=== PATIENT | female | born 1985 | race Two or more races ===

== ENCOUNTER 2025-03-10 01:12 | Emergency (ER) | payer BC, MEDICARE, MEDICAID ==
[~2025-03-10] VITALS: Ht 162.6 cm; Wt 74.0 kg
[~2025-03-10 01:12] MED LIST: HYDR-4833 PO; PRE1T PO
[2025-03-10 01:44] LABS: Basophils # (auto) 0 10 ^3/uL (0-0.2); Basophils % (auto) 0.6 % (0.0-2.0); Eosinophils # (auto) 0.1 10 ^3/uL (0-0.8); Hematocrit 31.7 % (36.0-46.0); Hemoglobin 10.4 g/dL (12.2-16.2); Lymphocytes # (auto) 2.3 10 ^3/uL (0.4-5.4); Lymphocytes % (auto) 33.8 % (10.0-50.0); Mean Corpuscular Hemoglobin 28.8 pg (28.0-32.0); Mean Corpuscular Hgb Conc. 32.8 g/dL (32.0-36.0); Mean Corpuscular Volume 87.7 fL (80.0-100.0); Monocytes # (auto) 0.5 10 ^3/uL (0-1.3); Monocytes % (auto) 7.1 % (0.0-12.0); Neutrophils % (auto) 57.5 % (37.0-80.0); Nucleated Red Blood Cells % 0.1 %; Platelet Count (auto) 268 10^3/uL (140-450); Red Blood Cells 3.62 10^6/uL (4.0-5.20); Red Cell Distribution Width 14.8 % (11.8-14.3); White Blood Cell 6.9 10^3/uL (4.4-10.8)
--- NOTE | 2025-03-10 01:50 | ED.PDOC ---
History of Present Illness HPI Comments 39 y/o F presents with left chest, neck, and arm pain, shortness of breath, generalized tremors, and nausea. Patient endorses on neck and arm pain being ongoing for 1 week, with remaining symptoms ensuing, last night. Patient reports on, recently, returning from a trip from [place], [place] and consuming al cohol. Only significant cardiac history of cardiomegaly during her . Denies any palpitations, dizziness, lightheadedness, vomiting, or further associated symptoms. Chief Complaint: Chest Pain Time Seen by MD: 01:30 Primary Care Provider: MIGUEL A Reviewed Notes: Nurses Notes, Medications, Allergies Allergies: Coded Allergies: Sulfa Antibiotics (Verified Allergy, Severe, 03/10/25) Home Meds Active Scripts Potassium Chloride (Potassium Chloride ER) 10 Meq Tab, 10 MEQ PO BID for 10 Days, #20 TAB Prov:SUMAYA GRAHAM MD 03/10/25 Reported Medications Prednisone (PREDNISONE) 1 Mg Tb, 4 TAB PO DAILY, #120 TAB 3 Refills 05/29/15 Hydrocodone-Acetaminophen ([place] 5/325MG) 1 Tab Tb, 1 TAB PO Q6HP PRN for M ODERATE PAIN, #60 TAB 05/29/15 Information Source: Patient Mode of Arrival: Ambulatory Severity: Moderate Timing: Hours Duration: Since onset Prehospital treatment: None Past Medical History PAST MEDICAL HISTORY: Asthma Surgical History: , Tubal Ligation [employer]AFF [employer] History: No Pertinent [employer]AFF [employer] History Family History Family History: No family hx of Cancer, No family hx of Heart elian Social History Smoker: Non-Smoker Alcohol: Occasionally Drugs: Denies Drug Use Lives In: Home All Other Systems: Reviewed and Negative (as per HPI) Physical Exam General Appearance: Mild Distress, Normal HEENT: Normal ENT Inspection, Pharynx Normal, TMs Normal Neck: Full Range of Motion, Non-Tender, Normal, Normal Inspection Respiratory: Chest Non-Tender, Lungs Clear, No Accessory Muscle Use, No Respiratory Distress, Normal Breath Sounds Cardiovascular: No Edema, No JVD, No Murmur, No Gallop, Normal Peripheral Pulses, Regular Rate/Rhythm Breast Exam: Deferred Gastrointestinal: No Organomegaly, Non Tender, No Pulsatile Mass, Normal Bowel Sounds, Soft Genitalia: Deferred Pelvic: Deferred Rectal: Deferred Extremities: No calf tenderness, Normal capillary refill, Normal inspection, Normal range of motion, Non-tender, No pedal edema Musculoskeletal : Apperance: Normal Neurologic: Alert, supervisor forming and tempering II-XII nml as Tested, No Motor Deficits, Normal Affect, Normal Mood, No Sensory Deficits Cerebellar Function: Normal Reflexes: Normal Skin: Dry, Normal Color, Warm Lymphatic: No Adenopathy Was a procedure done? Was a procedure done?: No EKG EKG : Pulse Rate (adult): 100 [place]: Normal Cardiac Rhythm: ST Block: None Hypertrophy: None Differential Dx Considerations may include: PA, PE, ACS, URI, PNA, anxiety, gastritis, among others X-Ray, Labs, Meds, VS Vital Signs Date Time Temp Pulse Resp B/P (MAP) Pulse Ox O2 Delivery O2 Flow Rate FiO2 03/10/25 04:48 98.3 80 16 162/92 (115) 99 98.3 03/10/25 03:00 98 Room Air* 0 21 03/10/25 03:00 98.3 87 19 169/103 (125) 99 98.3 03/10/25 02:23 86 03/10/25 01:50 100 03/10/25 01:21 100 03/10/25 01:12 99.0 85 16 152/99 (116) 97 99.0 Lab Test 03/10/25 04:37 03/10/25 02:16 03/10/25 01:45 03/10/25 01:18 Range/Units Troponin I High Sensitivity Pending < 3 L < 3 L </=34 ng/L Urine Color Colorless Yellow Urine Clarity Clear Clear Urine pH 6.5 5.0-9.0 Urine Specific [place] 1.006 1.001-1.035 Urine Protein Negative Negative Urine Ketones Negative Negative Urine Blood Negative Negative /uL Urine Nitrite Negative Negative Urine Bilirubin Negative Negative Urine Urobilinogen Normal Negative mg/dL Urine Leukocyte Esterase Negative Negative /uL Urine RBC 1 0 - 4 /hpf Urine Microscopic WBC < 1 0-5 /HPF Urine Squamous Epithelial Cells Few <5 /hpf Urine Bacteria None seen None Seen /hpf Urine Glucose Normal Normal mg/dL White Blood Count 6.9 4.4-10.8 10^3/uL Red Blood Count 3.62 L 4.0-5.20 10^6/uL Hemoglobin 10.4 L 12.2-16.2 g/dL Hematocrit 31.7 L 36.0-46.0 % Mean Corpuscular Volume 87.7 80.0-100.0 fL Mean Corpuscular Hemoglobin 28.8 28.0-32.0 pg Mean Corpuscular Hemoglobin Concent 32.8 32.0-36.0 g/dL Red Cell Distribution Width 14.8 H 11.8-14.3 % Platelet Count 268 140-450 10^3/uL Mean Platelet Volume 8.3 6.9-10.8 fL Neutrophils (%) (Auto) 57.5 37.0-80.0 % Lymphocytes (%) (Auto) 33.8 10.0-50.0 % Monocytes (%) (Auto) 7.1 0.0-12.0 % Eosinophils (%) (Auto) 1.0 0.0-7.0 % Basophils (%) (Auto) 0.6 0.0-2.0 % Neutrophils # (Auto) 4.0 1.6-8.6 10 ^3/uL Lymphocytes # (Auto) 2.3 0.4-5.4 10 ^3/uL Monocytes # (Auto) 0.5 0-1.3 10 ^3/uL Eosinophils # (Auto) 0.1 0-0.8 10 ^3/uL Basophils # (Auto) 0 0-0.2 10 ^3/uL Nucleated Red Blood Cells 0.1 % Sodium Level 138 136-145 mmol/L Potassium Level 3.2 L 3.5-5.1 mmol/L Chloride Level 103 98-107 mmol/L Carbon Dioxide Level 22 20-31 mmol/L Anion Gap 13 5-15 Blood Urea Nitrogen < 5 L 9-23 mg/dL Creatinine 0.78 0.550-1.02 mg/dL Glomerular Filtration Rate Calc 98 >90 mL/min BUN/Creatinine Ratio 6.4 L 10.0-20.0 Serum Glucose 90 74-106 mg/dL Calcium Level 9.0 8.7-10.4 mg/dL Total Bilirubin 0.5 0.2-1.0 mg/dL Aspartate Amino Transferase (AST) 23 <34 U/L Alanine Aminotransferase (ALT) 11 7-40 U/L Alkaline Phosphatase 67 46-116 U/L Total Protein 8.7 H 5.7-8.2 g/dL Albumin 4.1 3.2-4.8 g/dL Current Medications Medications (Trade) Dose Ordered Sig/Justice Route Start Time Stop Time Status Last Admin Potassium Chloride (Klor-Con Tablet) 20 meq ONCE ONCE PO 03/10/25 03:00 03/10/25 03:01 DC 03/10/25 03:55 Lorazepam (Ativan Inj) 1 mg ONCE ONCE IV 03/10/25 03:45 03/10/25 03:46 DC 03/10/25 03:55 Sodium Chloride 1,000 ml @ 1,000 mls/hr Q1H ONCE IV 03/10/25 03:45 03/10/25 04:44 DC 03/10/25 03:51 Ondansetron HCl (Zofran) 4 mg ONCE ONCE IV 03/10/25 04:00 03/10/25 04:01 DC 03/10/25 03:55 Time of 1ST Reevaluation: 02:00 Reevaluation 1ST: Unchanged Patient Education/Counseling: Diagnosis, Treatment, Need For Follow Up Family Education/Counseling: No Family Present Departure 1 Departure Time of Disposition: 04:00 Impression: Primary Impression: Atypical chest pain Additional Impression: Hypokalemia Disposition: 01 HOME / SELF CARE / HOMELESS Condition: Stable e-Prescriptions Potassium Chloride (Potassium Chloride ER) 10 Meq Tab 10 MEQ PO BID for 10 Days, #20 TAB Prov: SUMAYA GRAHAM MD 03/10/25 Discharged With: Self Critical Care Note Critical Care Time?: No Stability Stability form required: No Heart Score Heart Score: Heart Score Response (Comments) Value History Slightly Suspicious 0 EKG Normal 0 Age <45 0 Risk Factors 1 or 2 risk factors 1 Troponin Normal limit 0 Total 1 I personally scribed for SUMAYA GRAHAM MD ([email or web address]) on 03/10/25 at 01:50. Electronically submitted by Shade Booker [email or web address]). SUMAYA GRAHAM MD Mar 10, 2025 01:50
[2025-03-10 01:51] LABS: Urine Bacteria None Seen /hpf (None Seen)
[2025-03-10 01:55] LABS: Alanine Aminotransferase 11 U/L (7-40); Albumin 4.1 g/dL (3.2-4.8); Alkaline Phosphatase 67 U/L (46-116); Anion Gap 13 (5-15); Aspartate Aminotransferase 23 U/L (<34); Bilirubin, Total 0.5 mg/dL (0.2-1.0); Carbon Dioxide 22 mmol/L (20-31); Chloride 103 mmol/L (98-107); Glucose 90 mg/dL (74-106); Sodium 138 mmol/L (136-145)
[2025-03-10 02:00] LABS: BUN/Creatinine Ratio 6.4 (10.0-20.0); Blood Urea Nitrogen < 5 mg/dL (9-23); Potassium 3.2 mmol/L (3.5-5.1); Total Protein 8.7 g/dL (5.7-8.2)
[2025-03-10 02:01] LABS: Urine Blood Negative /uL (Negative); Urine Clarity Clear (Clear); Urine Color Colorless (Yellow); Urine Protein, UAD Negative (Negative); Urine Specific Gravity 1.006 (1.001-1.035); Urine Squamous Epithelial Cell FEW /hpf (<5); Urine Urobilinogen Normal (Negative); Urine WBC < 1 /HPF (0-5); Urine pH 6.5 (5.0-9.0)
--- NOTE | 2025-03-10 02:02 | DVH ---
EXAM: XY CHEST PORTABLE CLINICAL HISTORY: chest pain TECHNIQUE: Single AP view of the chest WID: COMPARISON: None FINDINGS: Lines and tubes: None Chest: The heart size and pulmonary vasculature is within normal limits. No pleural effusion, pneumothorax, or consolidation. The osseous structures are grossly intact. IMPRESSION: No acute cardiopulmonary abnormality.
[2025-03-10 03:00] VITALS: O2SAT 98
[2025-03-10] MEDS ORDERED: POTA-228 PO (03:02)
[2025-03-10] MEDS: SODIUM CHLORIDE 0.9% 1,000 ML IV ONE (03:51)
[2025-03-10] MEDS: ONDANSETRON HCL 4 MG/2 ML VIAL IV ONE (03:55)
[2025-03-10] MEDS: POTASSIUM CHL 20 Meq TABLET PO ONE (03:55)
[2025-03-10] MEDS: LORazepam 2MG/ML-1ML VIAL IV ONE (03:55)
[2025-03-10 04:48] VITALS: BP 162/92; PULSE 80; RESP 16; TEMP 98.3; O2SAT 99
--- NOTE | 2025-03-10 14:40 | ECG ---
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
--- NOTE | 2025-03-11 06:47 | ECG ---
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
== END 2025-03-10 04:52 | disposition home or self-care (01) ==
LOC: ER 01:12
DX: E87.6 Hypokalemia (principal); R07.89 Other chest pain; J45.909 Unspecified asthma, uncomplicated; Z79.899 Other long term (current) drug therapy; Z98.51 Tubal ligation status; Z98.890 Other specified postprocedural states; Z88.2 Allergy status to sulfonamides
CPT/HCPCS: 36415; 71045; 80053; 81001; 84484; 85025; 93005; 96361; 96374; 96375; 99285; J2060; J2405; J7030